=== PATIENT | female | born 1960 | race African-American/Black ===

== ENCOUNTER 2021-01-18 14:34 | Outpatient (CLI) | payer OTHER, SELFPAY ==
--- NOTE | ~2021-01-18 | XR_ITS ---
EXAMINATION: XR foot RT standing 2V INDICATION: Rheumatoid arthritis TECHNIQUE: Two views of the right foot are obtained. COMPARISON: None FINDINGS: There is no fracture, dislocation, or subluxation. There is moderate joint space narrowing in the midfoot. No definite erosions are identified. There is narrowing and mild irregularity at the second through fourth distal interphalangeal joints. The soft tissues are unremarkable. IMPRESSION: 1. Polyarticular arthritis. Reviewed, dictated and finalized at location A. IMPRESSION: 1. Polyarticular arthritis.
--- NOTE | ~2021-01-18 | XR_ITS ---
EXAMINATION: XR chest 2V DATE: 01/18/2021 15:08 INDICATION: Rheumatoid arthritis with rheumatoid factor of multiple sites. TECHNIQUE: Frontal and lateral views of the chest were obtained. COMPARISON: None. FINDINGS: The chest demonstrates clear lungs without pneumonia, pleural effusion, or pneumothorax. Th e heart size is normal. IMPRESSION: 1. No acute cardiopulmonary disease. Reviewed, dictated and finalized at location A.
--- NOTE | ~2021-01-18 | XR_ITS ---
EXAMINATION: XR foot LT standing 2V INDICATION: Rheumatoid arthritis TECHNIQUE: Two views of the left foot are obtained. COMPARISON: None available FINDINGS: There is moderate joint space narrowing in the midfoot. Mild joint space narrowing is seen and the third and fourth distal interphalangeal joints. There is mild osteoarthritis of the first met atarsophalangeal joint. The soft tissues are unremarkable. No fracture is identified. IMPRESSION: 1. Polyarticular arthritis. Reviewed, dictated and finalized at location A. IMPRESSION: 1. Polyarticular arthritis.
--- NOTE | ~2021-01-18 | XR_ITS ---
EXAMINATION: XR hand BI arthritis min 3V DATE: 01/18/2021 15:08 INDICATION: Rheumatoid arthritis TECHNIQUE: Posteroanterior, lateral, and oblique views of the left and of the right hands as well as a ballcatchers view of both hands were obtained. COMPARISON: None. FINDINGS: There are subcortical erosions and joint space narrowing at the second metacarpophalangeal joint of t he left hand with associated periarticular soft tissue swelling. Finding is also seen to a lesser deg ree at the fifth metacarpophalangeal joint of the right hand. There are subchondral cysts of the dist al aspect of the left first metacarpal. There is scapholunate dissociation and proximal migration of the capitate in the right wrist. There is advanced osteoarthritis at the right triscaphe joint. IMPRESSION: 1. Polyarticular arthritis as detailed above. 2. 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 Reviewed, dictated and finalized at location A.
== END 2021-01-18 14:35 | disposition home or self-care (01) ==
PROVIDERS: PCP Internal Medicine; Visit Provider Internal Medicine
DX: M05.79 Rheumatoid arthritis with rheumatoid factor of multiple sites without organ or systems involvement (principal); D86.9 Sarcoidosis, unspecified; E55.9 Vitamin D deficiency, unspecified; Z11.59 Encounter for screening for other viral diseases; M19.041 Primary osteoarthritis, right hand; M19.042 Primary osteoarthritis, left hand; M19.072 Primary osteoarthritis, left ankle and foot; M19.071 Primary osteoarthritis, right ankle and foot
CPT/HCPCS: 71046; 73130; 73620

== ENCOUNTER 2021-12-02 15:07 | Outpatient (CLI) | payer OTHER, SELFPAY ==
[2021-12-02 15:58] LABS: Basophils Percent Auto 0.3 % (0.2-1.2); Eosinophils Absolute Auto 0.1 K/mm3 (0-0.3); Eosinophils Percent Auto 1.3 % (0-4.4); Hematocrit 38.2 % (37.0-47.0); Hemoglobin 12.1 g/dL (12.0-15.0); Immature Granulocyte Absolute 0.01 K/mm3 (0.00-0.031); Immature Granulocyte Percent A 0.3 % (0-0.5); Lymphocytes Absolute Auto 1.13 K/mm3 (0.9-3.2); Lymphocytes Percent Auto 28.8 % (18.3-44.2); Mean Corpuscular HGB Conc 31.7 g/dl (32-36); Mean Corpuscular Hemoglobin 26.7 pg (26-34); Mean Corpuscular Volume 84.1 fl (80-100); Mean Platelet Volume 12.4 fl (7.4-10.4); Monocytes Absolute Auto 0.3 K/mm3 (0.1-0.6); Monocytes Percent Auto 7.1 % (2.6-8.5); Neutrophils Absolute Auto 2.4 K/mm3 (1.3-6.7); Neutrophils Percent Auto 62.2 % (45.5-73.1); Platelet Count Result 213 k/mm3 (150-375); Red Blood Count 4.54 M/mm3 (4.2-5.4); Red Cell Distribution Width 15.6 % (11.5-14.5); White Blood Count 3.9 K/mm3 (4.5-10.0)
[2021-12-02 16:01] LABS: Add Urine Microscopic? NO; Appearance Urine Clear (Clear); Bilirubin Urine Negative (Negative); Blood Urine Negative (Negative); Color Urine Yellow (Yellow); Glucose Urine UA Negative (Negative); Ketones Urine Negative (Negative); Leukocyte Esterase Ur Negative LEU/UL (Negative); Nitrate Urine Negative (Negative); Protein Urine Negative (Negative); Specific Grav Ur 1.013 (1.001-1.035); Urobilinogen Urine Negative mg/dL (<2.0)
[2021-12-02 16:18] LABS: Alanine Aminotransferase 13 U/L (4-35); Albumin Level 4.1 g/dL (3.5-5.1); Alkaline Phosphatase 105 U/L (38-126); Anion Gap 8 mmol/L (8-16); Aspartate Amino Transferase 27 U/L (14-36); Bilirubin,Total 0.5 mg/dL (0.2-1.3); Blood Urea Nitrogen 11 mg/dL (7-17); CRP 0.8 mg/dL (<1.0); Calcium 9.2 mg/dL (8.4-10.2); Carbon Dioxide 23 mmol/L (22-30); Chloride 105 mmol/L (98-107); Estimated Glomerular Filt Rate > 60; Glucose 111 mg/dL (65-110); Potassium 3.8 mmol/L (3.4-5.0); Sodium 136 mmol/L (137-145)
[2021-12-02 17:06] LABS: Erythrocyte Sedimentation Rate 20 mm/hr (0-20)
== END 2021-12-02 15:08 | disposition home or self-care (01) ==
PROVIDERS: PCP Internal Medicine; Visit Provider Internal Medicine
DX: M06.9 Rheumatoid arthritis, unspecified (principal); M19.90 Unspecified osteoarthritis, unspecified site
CPT/HCPCS: 36415; 80053; 81003; 85025; 85652; 86140

== ENCOUNTER 2023-02-04 12:30 | Outpatient (CLI) | payer OTHER, SELFPAY ==
--- NOTE | ~2023-02-04 | XR_ITS ---
EXAM: XR hip BI wo pelvis DATE: 02/04/2023 12:53 HISTORY: Rheumatoid arthritis, bilat hip pain w/o injury . COMPARISON: None available. FINDINGS: Mildly decreased mineralization. No fracture or dislocation. No lytic or blastic lesion. M ild superior joint space narrowing and subchondral sclerosis bilaterally in the hips. Mild degenerati ve change in the bilateral SI joints. Moderate degenerative change in the pubic symphysis. Scattered pelvic and hip enthesopathy. No erosion or periosteal change. Soft tissues within normal limits. IMPRESSION: Bilateral hip osteoarthritis. Osteitis pubis. Reviewed, dictated and finalized at location K.
[2023-02-04 13:08] LABS: Hematocrit 40.1 % (37.0-47.0); Hemoglobin 12.7 g/dL (12.0-15.0); Mean Corpuscular HGB Conc 31.7 g/dl (32-36); Mean Corpuscular Hemoglobin 26.5 pg (26-34); Mean Corpuscular Volume 83.7 fl (80-100); Mean Platelet Volume 12.6 fl (7.4-10.4); Platelet Count Result 223 k/mm3 (150-375); Red Blood Count 4.79 M/mm3 (4.2-5.4); Red Cell Distribution Width 15.9 % (11.5-14.5); White Blood Count 5.9 K/mm3 (4.5-10.0)
[2023-02-04 13:15] LABS: Appearance Urine Clear (Clear); Bacteria Urine None Seen /hpf; Bilirubin Urine Negative (Negative); Blood Urine Negative (Negative); Color Urine Dark Yellow (Yellow); Glucose Urine UA Negative (Negative); Ketones Urine Trace mg/dL (Negative); Leukocyte Esterase Ur Trace LEU/UL (Negative); Nitrate Urine Negative (Negative); Non Pathogenic Casts 0-2; Protein Urine Trace mg/dL (Negative); RBC Urine 0-2 /hpf (0-2); Specific Grav Ur 1.023 (1.001-1.035); Squamous Epithelial Cell Urine None seen /hpf (Few); WBC Urine 0-5 /hpf; pH Urine 5.5 (5.0-9.0)
[2023-02-04 13:22] LABS: Alanine Aminotransferase 18 U/L (6-35); Albumin Level 4.4 g/dL (3.5-5.1); Alkaline Phosphatase 90 U/L (38-126); Anion Gap 7 mmol/L (8-16); Aspartate Amino Transferase 33 U/L (14-36); Bilirubin,Total 0.6 mg/dL (0.2-1.3); Blood Urea Nitrogen 15 mg/dL (7-17); CRP 1.2 mg/dL (<1.0); Calcium 9.2 mg/dL (8.4-10.2); Carbon Dioxide 28 mmol/L (22-30); Chloride 103 mmol/L (98-107); Estimated Glomerular Filt Rate > 60; Glucose 102 mg/dL (65-110); Potassium 4.2 mmol/L (3.4-5.0); Sodium 138 mmol/L (137-145)
[2023-02-04 13:24] LABS: Add Urine Microscopic? YES
[2023-02-04 13:34] LABS: Erythrocyte Sedimentation Rate 27 mm/hr (0-20)
[2023-02-06 13:08] LABS: NIL 0.08 IU/mL; Quantiferon TB Plus, 1T NEGATIVE (NEGATIVE); TB1-NIL <0.00 IU/mL
== END 2023-02-04 12:31 | disposition home or self-care (01) ==
PROVIDERS: PCP Internal Medicine; Visit Provider Internal Medicine
DX: M16.0 Bilateral primary osteoarthritis of hip (principal); M86.9 Osteomyelitis, unspecified; M06.9 Rheumatoid arthritis, unspecified
CPT/HCPCS: 36415; 73521; 80053; 81001; 85027; 85652; 86140; 86480

== ENCOUNTER 2023-08-17 10:33 | Outpatient (CLI) | payer OTHER, SELFPAY ==
[2023-08-17 11:31] LABS: Appearance Urine Turbid (Clear); Bilirubin Urine Negative (Negative); Color Urine Dark Yellow (Yellow); Glucose Urine UA Negative (Negative); Ketones Urine Negative (Negative); Leukocyte Esterase Ur 3+ LEU/UL (Negative); Nitrate Urine Negative (Negative); Protein Urine Trace mg/dL (Negative); Specific Grav Ur 1.021 (1.001-1.035)
[2023-08-17 11:32] LABS: Hematocrit 38.8 % (37.0-47.0); Hemoglobin 12.1 g/dL (12.0-15.0); Immature Platelet Fraction Pct 15.2 % (0.9-11.2); Mean Corpuscular HGB Conc 31.2 g/dl (32-36); Mean Corpuscular Hemoglobin 27.2 pg (26-34); Mean Corpuscular Volume 87.2 fl (80-100); Mean Platelet Volume 13.3 fl (7.4-10.4); Platelet Count Result 188 k/mm3 (150-375); Red Blood Count 4.45 M/mm3 (4.2-5.4); Red Cell Distribution Width 15.8 % (11.5-14.5); White Blood Count 3.8 K/mm3 (4.5-10.0)
[2023-08-17 11:45] LABS: Alanine Aminotransferase 16 U/L (6-35); Alkaline Phosphatase 70 U/L (38-126); Anion Gap 7 mmol/L (8-16); Aspartate Amino Transferase 28 U/L (14-36); Bilirubin,Total 0.6 mg/dL (0.2-1.3); Blood Urea Nitrogen 12 mg/dL (7-17); Calcium 9.3 mg/dL (8.4-10.2); Carbon Dioxide 26 mmol/L (22-30); Chloride 105 mmol/L (98-107); Estimated Glomerular Filt Rate > 60; Glucose 95 mg/dL (65-110); Sodium 138 mmol/L (137-145)
[2023-08-17 11:53] LABS: Bacteria Urine 2+ /hpf; Hyaline Casts Urine Present /lpf; Need Manual Microscopic Reviewed; Squamous Epithelial Cell Urine Moderate /hpf (Few); WBC Urine 51-100 /hpf
[2023-08-17 12:02] LABS: Add Urine Microscopic? YES
[2023-08-17 12:37] LABS: Erythrocyte Sedimentation Rate 36 mm/hr (0-20)
== END 2023-08-17 10:34 | disposition home or self-care (01) ==
LOC: ANHLAB 10:36
PROVIDERS: PCP Internal Medicine; Visit Provider Internal Medicine
DX: D86.9 Sarcoidosis, unspecified (principal); M19.90 Unspecified osteoarthritis, unspecified site
CPT/HCPCS: 36415; 80053; 81001; 85027; 85055; 85652; 86140; 87086; 87088